=== PATIENT | male | born 1990 | race Caucasian/White ===

== ENCOUNTER 2020-01-06 00:36 | Emergency (ER) | payer BC ==
[~2020-01-06] VITALS: Ht 185.4 cm; Wt 10.0 kg
[2020-01-06] MEDS ORDERED: CEFTRIAXONE 1GM BAG (ER ONLY) 50 ML IV ONE (01:12)
[2020-01-06] MEDS ORDERED: KETOROLAC TROMETHAMINE 15 MG/ML VIAL ONE (01:13)
[2020-01-06] MEDS: CEFTRIAXONE 1 G in IV D5W 50 ML IV ONE (01:29)
[2020-01-06] MEDS: KETOROLAC TROMETHAMINE INJ 30 MG/ML VIAL IV ONE (01:29)
[2020-01-06] MEDS: IV NS 0.9% 1,000 ML BAG IV ONE (01:29)
--- NOTE | 2020-01-06 01:31 | NUR ---
PT TO ER BED 7 C/O SACRAL ABSCESS NOTICED ABOUT 4-5 DAYS AGO BY PT. PATIENT STATES THAT HE HAS HAD THAT AREA DRAINED BEFORE. PATIENT IS PLACED IN SUPINE POSITION TO RELIEF SACRAL PRESSURE. AAOX4. NO SOB .BREATHING EVENLY AND UNLABORED ON ROOM AIR.
[2020-01-06 01:38] LABS: BASOPHILS % (AUTO) 0.5 % (0.0-2.0); EOSINOPHILS % (AUTO) 0.7 % (0.0-6.0); HEMATOCRIT 47 % (39-51); HEMOGLOBIN 16.5 g/dL (13.5-17.5); LYMPHOCYTES # (AUTO) 1.7 /CMM (0.8-4.8); LYMPHOCYTES % (AUTO) 22.9 % (20.0-44.0); MEAN CORPUSCULAR HGB CONC 35 g/dl (31.0-36.0); MEAN CORPUSCULAR VOLUME 93 fL (80-96); MONOCYTES # (AUTO) 0.7 /CMM (0.1-1.30); MONOCYTES % (AUTO) 9.8 % (2.0-12.0); NEUTROPHILS % (AUTO) 66.1 % (43.0-81.0); PLATELET COUNT (AUTO) 189 /CMM (150-450); RED BLOOD CELL COUNT(AUTO) 5.11 MIL/uL (4.5-6.0); WHITE BLOOD COUNT (AUTO) 7.6 K/uL (4.3-11.0)
[2020-01-06 01:42] LABS: CALCIUM, SERUM 8.9 mg/dL (8.5-10.1); CREATININE 1.1 mg/dL (0.6-1.3); POTASSIUM 3.9 mmol/L (3.5-5.1)
--- NOTE | 2020-01-06 02:22 | NUR ---
Patient discharged to home in stable condition. Written and verbal after care instructions given. Patient verbalizes understanding of instruction.
--- NOTE | 2020-01-06 02:22 | NUR ---
IV removed. Catheter intact and site benign. Pressure and 4x4 applied to site. No bleeding noted.
[2020-01-06 02:24] VITALS: BP 132/82
== END 2020-01-06 02:25 | disposition home or self-care (01) ==
LOC: ER 00:36
DX: L05.91 Pilonidal cyst without abscess (principal); L08.89 Other specified local infections of the skin and subcutaneous tissue
CPT/HCPCS: 36415; 80048; 85025; 96365; 96375; 99284; J0696 ×2; J1885; J7030; J7060